=== PATIENT | male | born 1955 | race Caucasian/White ===

== ENCOUNTER 2019-07-06 09:47 | Day surgery (SDC) | payer MEDICARE ==
[~2019-07-06 09:47] MED LIST: Dexamethasone 4 MG/ML 5 ML MDV ONE; Ropivacaine 0.5% 5 MG/ML 30 ML SDV ONE
[2019-07-06] MEDS ORDERED: Lactated Ringers 1,000 ML IV SCH (11:00)
--- NOTE | 2019-07-06 11:20 | PCM.PREANE ---
Preanesthetic Assessment - Anesthesia/Transfusion/Family Hx Anesthesia History: No Prior Anesthesia Family History of Anesthesia Reaction: No Transfusion History: Unknown Intubation History: Unknown - Review of Systems General: No Symptoms Pulmonary: No Symptoms Cardiovascular: No Symptoms Gastrointestinal: No Symptoms Neurological: No Symptoms Other: Reports: None - Physical Assessment NPO Status Date: 07/06/19 NPO Status Time: 08:00 Vital Signs: Last Vital Signs Temp 36.5 C 07/06/19 10:00 Pulse Resp 18 07/06/19 10:00 BP 171/92 H 07/06/19 10:00 Pulse Ox 99 07/06/19 10:00 Height: 5 ft 9 in Weight: 102.058 kg ASA Class: 2 Mental Status: Alert & Oriented x3 Airway Class: Mallampati = 1 Dentition: Reports: Dentures (upper), Edentulous (lower) Thyro-Mental Finger Breadths: 3 Mouth Opening Finger Breadths: 3 ROM/Head Extension: Full Lungs: Clear to Auscultation, Normal Respiratory Effort Cardiovascular: Regular Rate, Regular Rhythm - Allergies Allergies/Adverse Reactions: Allergies Allergy/AdvReac Type Severity Reaction Status Date / Time naproxen [From Naprosyn] Allergy Rash Verified 07/03/19 13:30 - Blood Blood Available: No - Anesthesia Plan Pre-Op Medication Ordered: None - Acknowledgements Anesthesia Type Planned: General Anesthesia (interscalene brachial plexus block for postoperative pain control) Pt an Appropriate Candidate for the Planned Anesthesia: Yes Alternatives and Risks of Anesthesia Discussed w Pt/Guardian: Yes Pt/Guardian Understands and Agrees with Anesthesia Plan: Yes PreAnesthesia Questionnaire HEENT History: Reports: Other (See Below) Other HEENT History: wears glasses, top and bottom denture, hearing aids but does not wear them Cardiovascular History: Reports: None Respiratory History: Reports: None Gastrointestinal History: Reports: None Genitourinary History: Reports: None Musculoskeletal History: Reports: Other (See Below) Other Musculoskeletal History: dislocated rt hip in the past Neurological History: Reports: None Psychiatric History: Reports: None Endocrine/Metabolic History: Reports: Obesity/BMI 30+ Hematologic History: Reports: None Immunologic History: Reports: None Oncologic (Cancer) History: Reports: None Dermatologic History: Reports: None - Past Surgical History Head Surgeries/Procedures: Reports: None HEENT Surgical History: Reports: None Cardiovascular Surgical History: Reports: None Respiratory Surgical History: Reports: None GI Surgical History: Reports: None Male Surgical History: Reports: None Endocrine Surgical History: Reports: None Neurological Surgical History: Reports: None Musculoskeletal Surgical History: Reports: None Oncologic Surgical History: Reports: None Dermatological Surgical History: Reports: None - SUBSTANCE USE Smoking Status *Q: Former Smoker (quit 14 years ago) Tobacco Use Within Last Twelve Months: No Recreational Drug Use History: No - HOME MEDS Home Medications: Home Meds Aspirin [Adult Low Dose Aspirin EC] 81 mg PO DAILY 07/03/19 [History] Rutin/Hesp/Bioflav/C/[id number] [Bioflex] 1 tab PO DAILY 07/03/19 [History] - CURRENT (IN HOUSE) MEDS Current Meds: Current Medications Lactated Ringer's (Ringers, Lactated) 1,000 mls @ 100 mls/hr IV ASDIRECTED STEPHANY Discontinued Medications Dexamethasone (Dexamethasone) Confirm Administered Dose 20 mg .ROUTE .STK-MED ONE Stop: 07/06/19 07:51 Ropivacaine (Naropin 0.5%) Confirm Administered Dose 30 ml .ROUTE .STK-MED ONE Stop: 07/06/19 07:36
--- NOTE | 2019-07-06 11:44 | PCM.OPNOTE ---
- General Post-Op/Procedure Note Date of Surgery/Procedure: 07/06/19 Operative Procedure(s): right shoulder arthroscopy, subacromial decompression, open rotator cuff repair Pre Op Diagnosis: right shoulder impingement and rotator cuff tear Post-Op Diagnosis: Same Anesthesia Technique: General ET Tube Primary Surgeon: Elmer Estevez Anesthesia Provider: Weston Zuleta EBL in mLs: 50 Complications: None Condition: Good
[2019-07-06] MEDS ORDERED: Lidocaine 2% 5 ML SDV ONE (11:54)
[2019-07-06] MEDS ORDERED: Ketorolac 30 MG/ML SDV ONE (11:54)
[2019-07-06] MEDS ORDERED: Ondansetron 4 MG/2 ML SDV ONE (11:54)
[2019-07-06] MEDS ORDERED: Rocuronium 100 MG/10 ML Syringe ONE (11:54)
[2019-07-06] MEDS ORDERED: Glycopyrrolate 0.2 MG/ML SDV ONE (11:54)
[2019-07-06] MEDS ORDERED: Sugammadex Sodium 200 MG/2 ML VIAL ONE (11:55)
[2019-07-06] MEDS ORDERED: Midazolam 1 MG/ML 2 ML SDV ONE ×2 (11:57→11:58)
[2019-07-06] MEDS ORDERED: fentaNYL 100 MCG/2 ML SDV ONE ×2 (11:58→14:13)
[2019-07-06] MEDS ORDERED: Propofol 200 MG/20 ML SDV ONE (12:10)
[2019-07-06] MEDS ORDERED: ceFAZolin 1 GM Vial ONE (12:11)
[2019-07-06] MEDS ORDERED: Phenylephrine/Normal Saline 100 MCG/ML 10 ML Syringe ONE (14:00)
[2019-07-06] MEDS ORDERED: fentaNYL 250 MCG/5 ML SDV ONE (14:12)
--- NOTE | 2019-07-06 14:12 | PCM.PRNOTE ---
- Free Text/Narrative Note: Anes Note Right interscalene block for post op pain managmement per request of surgeon. Under sterile technique, the right side of the neck was prepped with chloraprep scrub. THe landmarks and nerves of the R IS bundle was identified. Using a stimuplex 22 X 2 needle, the nerves were approached using the nerve stimulator set at 1.2 mA. An excellent bicep twitch was noted. The needle was cautiously advnaced until the twitch was lost at 0.6 mA. At this time, the needle was carefully aspirated for blood; Negative. A totla of 25 cc 0.5% ropiviciane with 6 mg decadron added in slow incremental doses. The patient reported significan improvement in pain in the right shoulder. Weston Gallego BEVELLER OPERATOR
[2019-07-06] MEDS ORDERED: Labetalol 100 MG/20 ML MDV ONE (14:14)
[2019-07-06] MEDS: fentaNYL 100 MCG/2 ML SDV IVPUSH PRN ×2 (15:56→16:46)
--- NOTE | 2019-07-06 16:10 | PCM.POSTAN ---
POST ANESTHESIA ASSESSMENT - MENTAL STATUS Mental Status: Alert, Oriented - VITAL SIGNS Vital Signs: Last Vital Signs Temp 35.9 C 07/06/19 15:43 Pulse 89 07/06/19 16:05 Resp 9 L 07/06/19 16:05 BP 133/82 07/06/19 16:05 Pulse Ox 93 L 07/06/19 16:05 - RESPIRATORY Respiratory Status: Respiratory Rate WNL, Airway Patent, O2 Saturation Stable - CARDIOVASCULAR CV Status: Pulse Rate WNL, Blood Pressure Stable - GASTROINTESTINAL GI Status: No Symptoms - PAIN Pain Score: 0 - POST OP HYDRATION Hydration Status: Adequate & Stable
[2019-07-06] MEDS ORDERED: Acetaminophen/oxyCODONE 325-5 MG Tab PO PRN (17:00)
--- NOTE | 2019-07-06 17:19 | OR ---
SURGEON: Elmer Estevez DATE OF PROCEDURE: 07/06/2019 PREOPERATIVE DIAGNOSES: Right rotator cuff tear and right shoulder impingement. POSTOPERATIVE DIAGNOSES: Right rotator cuff tear and right shoulder impingement. PROCEDURES: 1. Right shoulder arthroscopy with partial synovectomy and bursectomy. 2. Open rotator cuff repair. PRIMARY SURGEON: Elmer Estevez DO. ANESTHESIA: Weston Curiel CRNA. FLUID: Lactated Ringer's solution. ESTIMATED BLOOD LOSS: 25 mL. COMPLICATIONS: None. SPECIMENS: None. DISCHARGE DISPOSITION: Stable to PACU. HISTORY AND INDICATIONS FOR THE PROCEDURE: The patient was seen preoperatively in the clinic. He had already had problems from an injury previous to this. He had an MRI which showed a large rotator cuff tear of at least the supraspinatus. Risks and goals of the procedure were explained to the patient. Informed consent was obtained. DETAILS OF PROCEDURE: The patient was seen preoperatively by myself and the Anesthesia staff in the preop holding area where the operative site was marked. He was brought to the operative suite by Anesthesia staff where a right interscalene block was performed followed by general endotracheal intubation. He was positioned in a beach chair. The right upper extremity was then prepped and draped in a sterile manner. Time-out was called identifying the correct patient, the correct procedure, the correct site and that antibiotics had been given within appropriate period of time. A posterior portal was made and the joint was explored. Biceps tendon was not intact. There was a large frame around the glenoid. 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 I went through the anterior portal and then performed a partial synovectomy and removed part of the glenoid labrum in the base of the biceps tendon and then used my ablation unit to clean up the edges. I then removed my scope and went into the subacromial space and then performed a partial bursectomy of the subacromial space. I then was able to visualize. The clavicle was identified easily. I did not see an acromion present or a hook at least indicating that there had been a previous acromial resection. I then removed my instruments and then re-prepped and then made a saber incision lateral to the acromion, approximately 5 cm. I carried this down to the deltoid fascia. I was able to identify the raphe between the anterior and medial deltoid and then went through this with Metzenbaum's. There was significant bursa in the area, then I performed a bursectomy using a 10 and 15 blade. There was a much larger rotator cuff tear than described on the imaging. I did this in two parts. I did the posterior portion of the cuff with two Corkscrew Arthrex anchors followed by two SwiveLock and then externally rotated the arm and did the anterior supraspinatus footprint with two Corkscrew and one SwiveLock in a two-row manner. After this had been performed and I felt that we had adequate fixation of the rotator cuff, we then irrigated copiously with Betadine infused irrigation. Closed the deltoid interval with 0 Stratafix in a watertight running manner; followed by subcutaneous closure with 0 Stratafix; followed by skin lucy; followed by Betadine-soaked Adaptic dressing, fluffs, and Medipore tape. The patient was allowed to awaken from general anesthesia and taken to the PACU in a sling. [id number] / MODL /[id number]
--- NOTE | 2019-07-06 18:10 | PCM48HPAN ---
Post Anesthesia Note - EVALUATION WITHIN 48HRS OF ANESTHETIC Vital Signs in Normal Range: Yes Patient Participated in Evaluation: Yes Respiratory Function Stable: Yes Airway Patent: Yes Cardiovascular Function Stable: Yes Hydration Status Stable: Yes Pain Control Satisfactory: Yes Nausea and Vomiting Control Satisfactory: Yes Mental Status Recovered: Yes Vital Signs: Last Vital Signs Temp 36.0 C 07/06/19 16:17 Pulse 89 07/06/19 16:17 Resp 16 07/06/19 16:17 BP 157/72 H 07/06/19 16:17 Pulse Ox 93 L 07/06/19 16:17
== END 2019-07-06 17:25 | disposition home or self-care (01) ==
LOC: MW.SDS 09:47
PROVIDERS: ATTEND Orthopaedic Surgery
DX: M75.101 Unspecified rotator cuff tear or rupture of right shoulder, not specified as traumatic (principal); M25.811 Other specified joint disorders, right shoulder; M19.019 Primary osteoarthritis, unspecified shoulder; Z88.6 Allergy status to analgesic agent; Z79.82 Long term (current) use of aspirin; Z87.891 Personal history of nicotine dependence
CPT/HCPCS: 23412; A9270; C1713; J0690; J1100; J1885; J2001; J2250; J2370; J2405; J2704; J2795; J3010; J3490; J7120

== ENCOUNTER 2020-02-06 10:35 | Observation (INO) | payer MEDICARE, OTHER ==
[2020-02-06] MEDS ORDERED: Aspirin 81 MG Tab.Chew PO ONE (10:43)
[2020-02-06] MEDS ORDERED: Sodium Chloride 0.9% 10 ML Syringe FLUSH PRN (10:43)
[2020-02-06] MEDS ORDERED: Sodium Chloride 0.9% 2.5 ML Syringe FLUSH PRN (10:43)
--- NOTE | 2020-02-06 10:47 | EDM.PDOC ---
ED HPI GENERAL MEDICAL PROBLEM - General Chief Complaint: Chest Pain Stated Complaint: CHEST PAIN Time Seen by Provider: 02/06/20 10:43 Source of Information: Reports: Patient - History of Present Illness INITIAL COMMENTS - FREE TEXT/NARRATIVE: History of present illness: 64-year-old male presenting with left-sided left lower chest/left upper abdomen pain which has been ongoing for 1 month. Patient does not have a primary care physician. Pain does not radiate anywhere. The patient describes it as a pressure point sensation. Reports pretty consistent throughout the day without waxing or waning or resolution. Reports he finally got tired of it and thought he would get it checked out. Took an 81 mg aspirin this morning. Review of systems: As per history of present illness and below otherwise all systems reviewed and negative. Past medical history: As per history of present illness and as reviewed below otherwise noncontributory. Surgical history: As per history of present illness and as reviewed below otherwise noncontributory. Social history: No reported history of drug or alcohol abuse. No smoking. Family history: As per history of present illness and as reviewed below otherwise noncontributory. Physical exam: GEN: no acute distress, well appearing HEENT: Atraumatic, normocephalic, mucous membranes moist, Neck: supple, nontender, trachea midline. Lungs: No respiratory distress. Heart: slightly irregular rhythm, consistent with monitor showing afib and EKG Abdomen: Soft, nondistended, nontender. Back: nontender Extremities: Atraumatic. Neurovascularly intact. Neuro: Awake, alert, oriented. Neuro Exam nonfocal. Skin: warm, dry, no lesions Diagnostics: [] Therapeutics: [] MDM: Impression: [] Plan: [] Definitive disposition and diagnosis as appropriate pending reevaluation and review of above. Left sternal Pain Score (Numeric/FACES): 3 - Related Data Allergies Allergy/AdvReac Type Severity Reaction Status Date / Time naproxen [From Naprosyn] Allergy Rash Verified 02/06/20 16:03 Home Meds: Home Meds Aspirin [Adult Low Dose Aspirin EC] 81 mg PO DAILY 07/03/19 [History] Past Medical History HEENT History: Reports: Other (See Below) Other HEENT History: wears glasses, top and bottom denture, hearing aids but does not wear them Cardiovascular History: Reports: None Respiratory History: Reports: None Gastrointestinal History: Reports: None Genitourinary History: Reports: None Musculoskeletal History: Reports: Other (See Below) Other Musculoskeletal History: dislocated rt hip in the past Neurological History: Reports: None Psychiatric History: Reports: None Endocrine/Metabolic History: Reports: Obesity/BMI 30+ Hematologic History: Reports: None Immunologic History: Reports: None Oncologic (Cancer) History: Reports: None Dermatologic History: Reports: None - Past Surgical History Head Surgeries/Procedures: Reports: None HEENT Surgical History: Reports: None Cardiovascular Surgical History: Reports: None Respiratory Surgical History: Reports: None GI Surgical History: Reports: None Male Surgical History: Reports: None Endocrine Surgical History: Reports: None Neurological Surgical History: Reports: None Musculoskeletal Surgical History: Reports: None Oncologic Surgical History: Reports: None Dermatological Surgical History: Reports: None ED ROS GENERAL - Review of Systems Review Of Systems: See Below (See HPI) ED EXAM, GENERAL - Physical Exam Exam: See Below (See HPI) EKG INTERPRETATION EKG Interpretation Comments: EKG performed at 10:37 AM appears to be in atrial fibrillation at a rate of 98 with T inversion in lead III and Q wave in lead III. No STEMI. No known history of atrial fibrillation Repeat EKG performed at 1:48 PM, atrial fibrillation, rate 85, right bundle branch block and left posterior fascicular block, no acute ischemia T wave inversion in lead III. Appears clinically unchanged from EKG performed earlier today. Course - Vital Signs Text/Narrative:: Patient with chest discomfort ongoing for 1 month. Initial and repeat troponin negative. EKG nonischemic but does appear to be atrial fibrillation. No prior history of atrial fibrillation and low/moderate risk for coronary artery disease. Patient does not have a primary care physician. Heart score 3. Last Recorded V/S: Last Vital Signs Temp 99.1 F 02/06/20 19:38 Pulse 90 02/06/20 19:38 Resp 16 02/06/20 19:38 BP 141/95 H 02/06/20 19:38 Pulse Ox 96 02/06/20 19:38 - Orders/Labs/Meds Orders: Active Orders 24 hr Category Date Time Status Sodium Chloride 0.9% [Saline Flush] Med 02/06/20 10:43 Active 10 ml FLUSH ASDIRECTED PRN Sodium Chloride 0.9% [Saline Flush] Med 02/06/20 10:43 Active 2.5 ml FLUSH ASDIRECTED PRN Saline Lock Insert [OM.PC] Stat Oth 02/06/20 10:43 Ordered Medication Orders Acetaminophen (Tylenol) 650 mg PO Q4H PRN PRN Reason: Pain (Mild 1-3)/fever Aspirin (Aspirin) 325 mg PO DAILY STEPHANY Metoprolol Tartrate (Lopressor) 25 mg PO Q12H STEPHANY Last Admin: 02/06/20 16:44 Dose: 25 mg Documented by: TRAE Metoprolol Tartrate (Lopressor) 5 mg IVPUSH Q4H PRN PRN Reason: HR >120 sustained Ondansetron HCl (Zofran) 4 mg IVPUSH Q4H PRN PRN Reason: Nausea Sodium Chloride (Saline Flush) 10 ml FLUSH ASDIRECTED PRN PRN Reason: Keep Vein Open Last Admin: 02/06/20 11:48 Dose: 10 ml Documented by: [id number] Sodium Chloride (Saline Flush) 2.5 ml FLUSH ASDIRECTED PRN PRN Reason: Keep Vein Open Last Admin: 02/06/20 11:48 Dose: 2.5 ml Documented by: [id number] Labs: Laboratory Tests 02/06/20 02/06/20 02/06/20 Range/Units 10:38 10:38 10:38 WBC 6.62 (4.0-11.0) K/uL RBC 5.07 (4.50-5.90) M/uL Hgb 15.8 (13.0-17.0) g/dL Hct 46.8 (38.0-50.0) % MCV 92.3 (80.0-98.0) fL MCH 31.2 (27.0-32.0) pg MCHC 33.8 (31.0-37.0) g/dL RDW Std Deviation 45.2 (28.0-62.0) fl RDW Coeff of Richie 13 (11.0-15.0) % Plt Count 133 L (150-400) K/uL MPV 11.10 (7.40-12.00) fL Neut % (Auto) 58.6 (48.0-80.0) % Lymph % (Auto) 25.2 (16.0-40.0) % [place] % (Auto) 11.2 (0.0-15.0) % Eos % (Auto) 4.7 (0.0-7.0) % Baso % (Auto) 0.3 (0.0-1.5) % Neut # (Auto) 3.9 (1.4-5.7) K/uL Lymph # (Auto) 1.7 (0.6-2.4) K/uL [place] # (Auto) 0.7 (0.0-0.8) K/uL Eos # (Auto) 0.3 (0.0-0.7) K/uL Baso # (Auto) 0.0 (0.0-0.1) K/uL Nucleated RBC % 0.0 /100WBC Nucleated RBCs # 0 K/uL INR 1.12 Sodium 140 (136-148) mmol/L Potassium 4.5 (3.5-5.1) mmol/L Chloride 106 (98-107) mmol/L Carbon Dioxide 24.2 (21.0-32.0) mmol/L BUN 14 (7.0-18.0) mg/dL Creatinine 1.1 (0.8-1.3) mg/dL Est Cr Clr Drug Dosing 66.06 mL/min Estimated GFR (MDRD) > 60.0 ml/min Glucose 109 H (74-106) mg/dL Hemoglobin A1c (4.5-6.2) % Calcium 9.2 (8.5-10.1) mg/dL Total Bilirubin 0.9 (0.2-1.0) mg/dL AST 27 (15-37) IU/L ALT 27 (14-63) IU/L Alkaline Phosphatase 66 (46-116) U/L Troponin I < 0.050 (0.000-0.056) ng/mL Total Protein 7.8 (6.4-8.2) g/dL Albumin 3.8 (3.4-5.0) g/dL Globulin 4.0 (2.6-4.0) g/dL Albumin/Globulin Ratio 0.9 (0.9-1.6) Triglycerides (0-200) mg/dL Cholesterol (50-200) mg/dL LDL Cholesterol, Calc (60-180) mg/dL VLDL Cholesterol (5-55) mg/dL HDL Cholesterol (40-60) mg/dL Cholesterol/HDL Ratio (3.3-6.0) Lipase 80 (73-393) U/L TSH 3rd Generation 2.84 (0.36-3.74) uIU/mL 02/06/20 02/06/20 02/06/20 Range/Units 10:38 10:38 12:46 WBC (4.0-11.0) K/uL RBC (4.50-5.90) M/uL Hgb (13.0-17.0) g/dL Hct (38.0-50.0) % MCV (80.0-98.0) fL MCH (27.0-32.0) pg MCHC (31.0-37.0) g/dL RDW Std Deviation (28.0-62.0) fl RDW Coeff of Richie (11.0-15.0) % Plt Count (150-400) K/uL MPV (7.40-12.00) fL Neut % (Auto) (48.0-80.0) % Lymph % (Auto) (16.0-40.0) % [place] % (Auto) (0.0-15.0) % Eos % (Auto) (0.0-7.0) % Baso % (Auto) (0.0-1.5) % Neut # (Auto) (1.4-5.7) K/uL Lymph # (Auto) (0.6-2.4) K/uL [place] # (Auto) (0.0-0.8) K/uL Eos # (Auto) (0.0-0.7) K/uL Baso # (Auto) (0.0-0.1) K/uL Nucleated RBC % /100WBC Nucleated RBCs # K/uL INR Sodium (136-148) mmol/L Potassium (3.5-5.1) mmol/L Chloride (98-107) mmol/L Carbon Dioxide (21.0-32.0) mmol/L BUN (7.0-18.0) mg/dL Creatinine (0.8-1.3) mg/dL Est Cr Clr Drug Dosing mL/min Estimated GFR (MDRD) ml/min Glucose (74-106) mg/dL Hemoglobin A1c 5.9 (4.5-6.2) % Calcium (8.5-10.1) mg/dL Total Bilirubin (0.2-1.0) mg/dL AST (15-37) IU/L ALT (14-63) IU/L Alkaline Phosphatase (46-116) U/L Troponin I < 0.050 (0.000-0.056) ng/mL Total Protein (6.4-8.2) g/dL Albumin (3.4-5.0) g/dL Globulin (2.6-4.0) g/dL Albumin/Globulin Ratio (0.9-1.6) Triglycerides 65 (0-200) mg/dL Cholesterol 189 (50-200) mg/dL LDL Cholesterol, Calc 134 (60-180) mg/dL VLDL Cholesterol 13 (5-55) mg/dL HDL Cholesterol 42 (40-60) mg/dL Cholesterol/HDL Ratio 4.5 (3.3-6.0) Lipase (73-393) U/L TSH 3rd Generation (0.36-3.74) uIU/mL Meds: Medications Generic Name Dose Route Start Last Admin Trade Name Freq PRN Reason Stop Dose Admin Acetaminophen 650 mg 02/06/20 14:37 Tylenol PO Q4H PRN Pain (Mild 1-3)/fever Aspirin 325 mg 02/07/20 09:00 Aspirin PO DAILY STEPHANY Metoprolol Tartrate 25 mg 02/06/20 16:45 02/06/20 16:44 Lopressor PO 25 mg Q12H STEPHANY Administration Metoprolol Tartrate 5 mg 02/06/20 16:32 Lopressor IVPUSH Q4H PRN HR >120 sustained Ondansetron HCl 4 mg 02/06/20 14:37 Zofran IVPUSH Q4H PRN Nausea Sodium Chloride 10 ml 02/06/20 10:43 02/06/20 11:48 Saline Flush FLUSH 10 ml ASDIRECTED PRN Administration Keep Vein Open Sodium Chloride 2.5 ml 02/06/20 10:43 02/06/20 11:48 Saline Flush FLUSH 2.5 ml ASDIRECTED PRN Administration Keep Vein Open Discontinued Medications Generic Name Dose Route Start Last Admin Trade Name Freq PRN Reason Stop Dose Admin Aspirin 324 mg 02/06/20 10:43 02/06/20 11:47 Aspirin PO 02/06/20 10:44 324 mg ONETIME ONE Administration Enoxaparin Sodium 100 mg 02/06/20 13:55 02/06/20 14:21 Lovenox SUBCUT 02/06/20 13:56 100 mg ONETIME ONE Administration - Re-Assessments/Exams Free Text/Narrative Re-Assessment/Exam: 02/06/20 13:12 Results discussed with patient. Recommendation for admission discussed. Patient agrees with this plan. He is pain-free at this time. 02/06/20 13:[address] Gary, who called back to admit the patient. He agrees with this plan and accepts admission. Request to place the patient under observation, telemetry. Departure - Departure Time of Disposition: 13:50 Disposition: Refer to Observation Clinical Impression: Atrial fibrillation, Chest pain Sepsis Event Note (ED) - Focused Exam Vital Signs: Vital Signs Temp Pulse Resp BP Pulse Ox 02/06/20 13:30 92 17 131/80 96 02/06/20 12:45 92 17 145/82 H 98 02/06/20 12:15 89 17 134/82 98 02/06/20 11:45 89 17 128/88 96 02/06/20 11:15 92 16 128/80 97 02/06/20 10:42 97.8 F 101 H 16 113/85 98 - My Orders Last 24 Hours: My Active Orders 02/06/20 10:43 Sodium Chloride 0.9% [Saline Flush] 10 ml FLUSH ASDIRECTED PRN Sodium Chloride 0.9% [Saline Flush] 2.5 ml FLUSH ASDIRECTED PRN Saline Lock Insert [OM.PC] Stat - Assessment/Plan Last 24 Hours: My Active Orders 02/06/20 10:43 Sodium Chloride 0.9% [Saline Flush] 10 ml FLUSH ASDIRECTED PRN Sodium Chloride 0.9% [Saline Flush] 2.5 ml FLUSH ASDIRECTED PRN Saline Lock Insert [OM.PC] Stat
--- NOTE | 2020-02-06 11:15 | CR ---
Chest: 2 views of the chest were obtained. Comparison: No previous chest imaging is available. Small nodule is noted within the right upper lung laterally along the chest wall. This either represents a bone island within the rib or a granuloma. Lungs otherwise are clear with no acute parenchymal change. Heart size and mediastinum are normal. Bony structures shows mild scattered disc space narrowing and endplate spurring. Impression: 1. Nonacute findings as noted above. Diagnostic code #2 This report was dictated in MDT
[2020-02-06 11:21] LABS: BLOOD UREA NITROGEN,BUN 14 mg/dL (7.0-18.0); CARBON DIOXIDE,CO2 24.2 mmol/L (21.0-32.0); CHLORIDE,CL 106 mmol/L (98-107); GLUCOSE RANDOM 109 mg/dL (74-106); LIPASE 80 U/L (73-393); POTASSIUM,K 4.5 mmol/L (3.5-5.1); SODIUM,NA 140 mmol/L (136-148)
[2020-02-06] MEDS ORDERED: Enoxaparin 100 MG/1 ML Syringe SUBCUT ONE (13:55)
[2020-02-06] MEDS ORDERED: Ondansetron 4 MG/2 ML SDV IVPUSH PRN (14:37)
[2020-02-06] MEDS ORDERED: Acetaminophen 325 MG Tab PO PRN (14:37)
[2020-02-06 15:06] LABS: HEMOGLOBIN A1C 5.9 % (4.5-6.2)
--- NOTE | 2020-02-06 15:56 | PCM.HP.2 ---
H&P History of Present Illness - General Date of Service: 02/06/20 Admit Problem/Dx: Admission Diagnosis/Problem Admission Diagnosis/Problem Atrial fibrillation Source of Information: Patient History Limitations: Reports: No Limitations - History of Present Illness Initial Comments - Free Text/Narative: This 64 year old male with no significant pmh presented to the ED today with complaints of chest pain x 1 month. He reports this pain happens in themorning and as he gets moving he doesn't notice it anymore. It has been happening more often and he wanted to be evaluated and does not have a PCP. He has been monitoring BP at home, HR has been 90-110 and BP 130-140/80-90. He has never been on medication for HTN. He reports he takes only ASA now. He denies radiation of pain, no other associated symptoms. He denies lightheadedness, dizziness, or syncope. He denies palpitations. 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 No fevers, chills, cough, sore throat. He denies abdominal pain or urinary concerns. No neurological deficits. He used to smoke, but quit many years ago, no alcohol use and no recreational drug use. In the ED, no leukocytosis noted. BUN cr normal. Glucose 109, A1c 5.9. TSH 2.84. EKG revealed atrial fibrillation. Telemetery revealed HR elevated to 150s, all symptomatic. CXR negative. Troponin negative. Admitted for chest pain and new onset atrial fibrillaton. Requests PCP follow up with Dr Donahue. Left sternal Pain Score (Numeric/FACES): 3 - Related Data Allergies/Adverse Reactions: Allergies Allergy/AdvReac Type Severity Reaction Status Date / Time naproxen [From Naprosyn] Allergy Rash Verified 02/06/20 16:03 Home Medications: Home Meds Aspirin [Adult Low Dose Aspirin EC] 81 mg PO DAILY 07/03/19 [History] Past Medical History HEENT History: Reports: Other (See Below) Other HEENT History: wears glasses, top and bottom denture, hearing aids but does not wear them Cardiovascular History: Reports: None. Denies: Afib, Blood Clots/VTE/DVT, CAD, High Cholesterol Respiratory History: Reports: None. Denies: Asthma, COPD, PE Gastrointestinal History: Reports: None. Denies: GERD Genitourinary History: Reports: None Musculoskeletal History: Reports: Other (See Below) Other Musculoskeletal History: dislocated rt hip in the past Neurological History: Reports: None Psychiatric History: Reports: None Endocrine/Metabolic History: Reports: Obesity/BMI 30+ Hematologic History: Reports: None Immunologic History: Reports: None Oncologic (Cancer) History: Reports: None Dermatologic History: Reports: None - Infectious Disease History Infectious Disease History: Reports: None - Past Surgical History Head Surgeries/Procedures: Reports: None HEENT Surgical History: Reports: None Cardiovascular Surgical History: Reports: None Respiratory Surgical History: Reports: None GI Surgical History: Reports: None Male Surgical History: Reports: None Endocrine Surgical History: Reports: None Neurological Surgical History: Reports: None Musculoskeletal Surgical History: Reports: Shoulder Surgery Oncologic Surgical History: Reports: None Dermatological Surgical History: Reports: None Social & Family History - Family History Family Medical History: Noncontributory - Tobacco Use Smoking Status *Q: Never Smoker - Caffeine Use Caffeine Use: Reports: Coffee - Alcohol Use Alcohol Use History: No - Recreational Drug Use Recreational Drug Use: No - Living Situation & Occupation Occupation: Employed (own construction business) H&P Review of Systems - Review of Systems: Review Of Systems: See Below General: Reports: No Symptoms. Denies: Fever, Chills, Malaise Pulmonary: Denies: Shortness of Breath Cardiovascular: Reports: Chest Pain. Denies: Orthopnea, Edema, Lightheadedness, Syncope Gastrointestinal: Reports: No Symptoms. Denies: Black Stool, Bloody Stool, Decreased Appetite, Nausea, Vomiting Genitourinary: Reports: No Symptoms. Denies: Dysuria, Frequency Musculoskeletal: Reports: No Symptoms Skin: Reports: No Symptoms. Denies: Erythema, Wound Psychiatric: Reports: No Symptoms Neurological: Reports: No Symptoms Hematologic/Lymphatic: Reports: No Symptoms Immunologic: Reports: No Symptoms Exam - Exam Exam: See Below - Vital Signs Vital Signs: Last Vital Signs Temp 97.8 F 02/06/20 10:42 Pulse 89 02/06/20 14:26 Resp 17 02/06/20 14:26 BP 125/88 02/06/20 14:26 Pulse Ox 98 02/06/20 14:26 Weight: 97.522 kg - Exam General: Alert, Oriented, Cooperative Neck: Supple, Trachea Midline Lungs: Clear to Auscultation, Normal Respiratory Effort Cardiovascular: Irregular Rhythm, Tachycardia GI/Abdominal Exam: Normal Bowel Sounds, Soft, Non-Tender Back Exam: Normal Inspection, Full Range of Motion Extremities: Normal Inspection, Normal Range of Motion, Non-Tender, No Pedal Edema Neuro Extensive - Mental Status: Alert, Oriented x3 Neuro Extensive - Motor, Sensory, Reflexes: CN II-XII Intact Psychiatric: Alert, Normal Affect, Normal Mood - Patient Data Lab Results Last 24 hrs: Laboratory Results - last 24 hr 02/06/20 02/06/20 02/06/20 Range/Units 10:38 10:38 10:38 WBC 6.62 (4.0-11.0) K/uL RBC 5.07 (4.50-5.90) M/uL Hgb 15.8 (13.0-17.0) g/dL Hct 46.8 (38.0-50.0) % MCV 92.3 (80.0-98.0) fL MCH 31.2 (27.0-32.0) pg MCHC 33.8 (31.0-37.0) g/dL RDW Std Deviation 45.2 (28.0-62.0) fl RDW Coeff of Richie 13 (11.0-15.0) % Plt Count 133 L (150-400) K/uL MPV 11.10 (7.40-12.00) fL Neut % (Auto) 58.6 (48.0-80.0) % Lymph % (Auto) 25.2 (16.0-40.0) % [place] % (Auto) 11.2 (0.0-15.0) % Eos % (Auto) 4.7 (0.0-7.0) % Baso % (Auto) 0.3 (0.0-1.5) % Neut # (Auto) 3.9 (1.4-5.7) K/uL Lymph # (Auto) 1.7 (0.6-2.4) K/uL [place] # (Auto) 0.7 (0.0-0.8) K/uL Eos # (Auto) 0.3 (0.0-0.7) K/uL Baso # (Auto) 0.0 (0.0-0.1) K/uL Nucleated RBC % 0.0 /100WBC Nucleated RBCs # 0 K/uL INR 1.12 Sodium 140 (136-148) mmol/L Potassium 4.5 (3.5-5.1) mmol/L Chloride 106 (98-107) mmol/L Carbon Dioxide 24.2 (21.0-32.0) mmol/L BUN 14 (7.0-18.0) mg/dL Creatinine 1.1 (0.8-1.3) mg/dL Est Cr Clr Drug Dosing 66.06 mL/min Estimated GFR (MDRD) > 60.0 ml/min Glucose 109 H (74-106) mg/dL Hemoglobin A1c (4.5-6.2) % Calcium 9.2 (8.5-10.1) mg/dL Total Bilirubin 0.9 (0.2-1.0) mg/dL AST 27 (15-37) IU/L ALT 27 (14-63) IU/L Alkaline Phosphatase 66 (46-116) U/L Troponin I < 0.050 (0.000-0.056) ng/mL Total Protein 7.8 (6.4-8.2) g/dL Albumin 3.8 (3.4-5.0) g/dL Globulin 4.0 (2.6-4.0) g/dL Albumin/Globulin Ratio 0.9 (0.9-1.6) Triglycerides (0-200) mg/dL Cholesterol (50-200) mg/dL LDL Cholesterol, Calc (60-180) mg/dL VLDL Cholesterol (5-55) mg/dL HDL Cholesterol (40-60) mg/dL Cholesterol/HDL Ratio (3.3-6.0) Lipase 80 (73-393) U/L TSH 3rd Generation 2.84 (0.36-3.74) uIU/mL SARS Virus RNA (PCR) (NEGATIVE) 02/06/20 02/06/20 02/06/20 Range/Units 10:38 10:38 12:46 WBC (4.0-11.0) K/uL RBC (4.50-5.90) M/uL Hgb (13.0-17.0) g/dL Hct (38.0-50.0) % MCV (80.0-98.0) fL MCH (27.0-32.0) pg MCHC (31.0-37.0) g/dL RDW Std Deviation (28.0-62.0) fl RDW Coeff of Richie (11.0-15.0) % Plt Count (150-400) K/uL MPV (7.40-12.00) fL Neut % (Auto) (48.0-80.0) % Lymph % (Auto) (16.0-40.0) % [place] % (Auto) (0.0-15.0) % Eos % (Auto) (0.0-7.0) % Baso % (Auto) (0.0-1.5) % Neut # (Auto) (1.4-5.7) K/uL Lymph # (Auto) (0.6-2.4) K/uL [place] # (Auto) (0.0-0.8) K/uL Eos # (Auto) (0.0-0.7) K/uL Baso # (Auto) (0.0-0.1) K/uL Nucleated RBC % /100WBC Nucleated RBCs # K/uL INR Sodium (136-148) mmol/L Potassium (3.5-5.1) mmol/L Chloride (98-107) mmol/L Carbon Dioxide (21.0-32.0) mmol/L BUN (7.0-18.0) mg/dL Creatinine (0.8-1.3) mg/dL Est Cr Clr Drug Dosing mL/min Estimated GFR (MDRD) ml/min Glucose (74-106) mg/dL Hemoglobin A1c 5.9 (4.5-6.2) % Calcium (8.5-10.1) mg/dL Total Bilirubin (0.2-1.0) mg/dL AST (15-37) IU/L ALT (14-63) IU/L Alkaline Phosphatase (46-116) U/L Troponin I < 0.050 (0.000-0.056) ng/mL Total Protein (6.4-8.2) g/dL Albumin (3.4-5.0) g/dL Globulin (2.6-4.0) g/dL Albumin/Globulin Ratio (0.9-1.6) Triglycerides 65 (0-200) mg/dL Cholesterol 189 (50-200) mg/dL LDL Cholesterol, Calc 134 (60-180) mg/dL VLDL Cholesterol 13 (5-55) mg/dL HDL Cholesterol 42 (40-60) mg/dL Cholesterol/HDL Ratio 4.5 (3.3-6.0) Lipase (73-393) U/L TSH 3rd Generation (0.36-3.74) uIU/mL SARS Virus RNA (PCR) (NEGATIVE) 02/06/20 Range/Units 14:20 WBC (4.0-11.0) K/uL RBC (4.50-5.90) M/uL Hgb (13.0-17.0) g/dL Hct (38.0-50.0) % MCV (80.0-98.0) fL MCH (27.0-32.0) pg MCHC (31.0-37.0) g/dL RDW Std Deviation (28.0-62.0) fl RDW Coeff of Richie (11.0-15.0) % Plt Count (150-400) K/uL MPV (7.40-12.00) fL Neut % (Auto) (48.0-80.0) % Lymph % (Auto) (16.0-40.0) % [place] % (Auto) (0.0-15.0) % Eos % (Auto) (0.0-7.0) % Baso % (Auto) (0.0-1.5) % Neut # (Auto) (1.4-5.7) K/uL Lymph # (Auto) (0.6-2.4) K/uL [place] # (Auto) (0.0-0.8) K/uL Eos # (Auto) (0.0-0.7) K/uL Baso # (Auto) (0.0-0.1) K/uL Nucleated RBC % /100WBC Nucleated RBCs # K/uL INR Sodium (136-148) mmol/L Potassium (3.5-5.1) mmol/L Chloride (98-107) mmol/L Carbon Dioxide (21.0-32.0) mmol/L BUN (7.0-18.0) mg/dL Creatinine (0.8-1.3) mg/dL Est Cr Clr Drug Dosing mL/min Estimated GFR (MDRD) ml/min Glucose (74-106) mg/dL Hemoglobin A1c (4.5-6.2) % Calcium (8.5-10.1) mg/dL Total Bilirubin (0.2-1.0) mg/dL AST (15-37) IU/L ALT (14-63) IU/L Alkaline Phosphatase (46-116) U/L Troponin I (0.000-0.056) ng/mL Total Protein (6.4-8.2) g/dL Albumin (3.4-5.0) g/dL Globulin (2.6-4.0) g/dL Albumin/Globulin Ratio (0.9-1.6) Triglycerides (0-200) mg/dL Cholesterol (50-200) mg/dL LDL Cholesterol, Calc (60-180) mg/dL VLDL Cholesterol (5-55) mg/dL HDL Cholesterol (40-60) mg/dL Cholesterol/HDL Ratio (3.3-6.0) Lipase (73-393) U/L TSH 3rd Generation (0.36-3.74) uIU/mL SARS Virus RNA (PCR) NEGATIVE (NEGATIVE) Result Diagrams: 02/06/20 10:38 02/06/20 10:38 EKG INTERPRETATION EKG Date: 02/06/20 Rhythm: A-Fib Sepsis Event Note - Evaluation Sepsis Screening Result: No Definite Risk - Focused Exam Vital Signs: Vital Signs Temp Pulse Resp BP Pulse Ox 02/06/20 14:26 89 17 125/88 98 02/06/20 13:30 92 17 131/80 96 02/06/20 12:45 92 17 145/82 H 98 02/06/20 12:15 89 17 134/82 98 02/06/20 11:45 89 17 128/88 96 02/06/20 11:15 92 16 128/80 97 02/06/20 10:42 97.8 F 101 H 16 113/85 98 Date Exam was Performed: 02/06/20 Time Exam was Performed: 16:34 - Problem List (1) Chest pain SNOMED Code(s): 72694109 ICD Code: R07.9 - CHEST PAIN, UNSPECIFIED Status: Acute Current Visit: Yes (2) Atrial fibrillation SNOMED Code(s): 03043838 ICD Code: I48.91 - UNSPECIFIED ATRIAL FIBRILLATION Status: Acute Current Visit: Yes (3) HTN (hypertension) SNOMED Code(s): 90830597 ICD Code: I10 - ESSENTIAL (PRIMARY) HYPERTENSION Status: Acute Current Visit: Yes Qualifiers: Hypertension type: essential hypertension Qualified Code(s): I10 - Essential (primary) hypertension Problem List Initiated/Reviewed/Updated: Yes Orders Last 24hrs: Active Orders 24 hr Category Date Time Status Patient Status [ADT] Routine ADT 02/06/20 14:11 Active EKG 12 Lead [EKG Documentation Completion] [RC] STAT Care 02/06/20 14:02 Active EKG Documentation Completion [RC] STAT Care 02/06/20 10:44 Active Height and Weight [RC] DAILY Care 02/06/20 14:37 Active Intake and Output [RC] QSHIFT Care 02/06/20 14:37 Active Oxygen Therapy [RC] PRN Care 02/06/20 14:37 Active Telemetry Monitoring [Cardiac Monitoring] [RC] Q8H Care 02/06/20 14:33 Active Up With Assistance [RC] ASDIRECTED Care 02/06/20 14:37 Active VTE/DVT Education [RC] PER UNIT ROUTINE Care 02/06/20 14:37 Active Vital Signs [RC] Q4H Care 02/06/20 14:37 Active Heart Healthy Diet [DIET] Diet 02/06/20 Lunch Active Echo Comp wo Cont [US] Urgent Exams 02/07/20 08:30 Ordered TROPONIN I [CHEM] Q6H Lab 02/06/20 18:00 Ordered TROPONIN I [CHEM] Q6H Lab 02/07/20 00:00 Ordered Acetaminophen [Tylenol] Med 02/06/20 14:37 Active 650 mg PO Q4H PRN Ondansetron [Zofran] Med 02/06/20 14:37 Active 4 mg IVPUSH Q4H PRN Sodium Chloride 0.9% [Saline Flush] Med 02/06/20 10:43 Active 10 ml FLUSH ASDIRECTED PRN Sodium Chloride 0.9% [Saline Flush] Med 02/06/20 10:43 Active 2.5 ml FLUSH ASDIRECTED PRN Saline Lock Insert [OM.PC] Stat Oth 02/06/20 10:43 Ordered Resuscitation Status Routine Resus Stat 02/06/20 14:37 Ordered Medication Orders Acetaminophen (Tylenol) 650 mg PO Q4H PRN PRN Reason: Pain (Mild 1-3)/fever Ondansetron HCl (Zofran) 4 mg IVPUSH Q4H PRN PRN Reason: Nausea Sodium Chloride (Saline Flush) 10 ml FLUSH ASDIRECTED PRN PRN Reason: Keep Vein Open Last Admin: 02/06/20 11:48 Dose: 10 ml Documented by: JIM Sodium Chloride (Saline Flush) 2.5 ml FLUSH ASDIRECTED PRN PRN Reason: Keep Vein Open Last Admin: 02/06/20 11:48 Dose: 2.5 ml Documented by: JIM Assessment/Plan Comment:: This 64 year old male admitted with chest pain r/o ACS and new onset atrial fibrillation 1. Chest pain - Monitor on telemetry - Trend troponins - Arrange outpatient stress test - A1c 5.9 - Lipid panel Triglycerides 65, Total 189, LDL 134, HDL 42 2. New onset Atrial fibrillation - Obtain ECHO - TSH WNL - CHADSVACS score 1 - Given Lovenox in the ED - Continue ASA 325 mg daily - Start metoprolol 25 mg BID and monitor - PRN Lopressor for sustained RVR > 120 - Counseled on new diagnoses, goals of rate control and stroke prevention. 3. HTN - New diagnoses, start metoprolol and monitor VTE prophylaxis: SCDs, given Lovenox in ED Dispo: 1-2 days - Mortality Measure Prognosis:: Good
[2020-02-06] MEDS ORDERED: Metoprolol Tartrate 5 MG/5 ML SDV IVPUSH PRN (16:32)
[2020-02-06] MEDS: Metoprolol Tartrate 25 MG Tab PO SCH (16:44)
[2020-02-07] MEDS: Metoprolol Tartrate 25 MG Tab PO SCH (05:10)
[2020-02-07] MEDS ORDERED: Metoprolol Tartrate 25 MG Tab PO ONE (07:56)
[2020-02-07] MEDS ORDERED: Aspirin 325 MG Tab PO SCH (09:00)
[2020-02-07] MEDS ORDERED: Apixaban 5 MG Tab PO SCH (11:00)
--- NOTE | 2020-02-07 11:03 | PCM.DCSUM1 ---
Discharge Summary - Hospital Course Brief History: This 64 year old male with no significant pmh presented to the ED today with complaints of chest pain x 1 month. He reports this pain happens in themorning and as he gets moving he doesn't notice it anymore. It has been happening more often and he wanted to be evaluated and does not have a PCP. He has been monitoring BP at home, HR has been 90-110 and BP 130-140/80-90. He has never been on medication for HTN. He reports he takes only ASA now. He denies radiation of pain, no other associated symptoms. He denies lightheadedness, dizziness, or syncope. He denies palpitations. 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 No fevers, chills, cough, sore throat. He denies abdominal pain or urinary concerns. No neurological deficits. He used to smoke, but quit many years ago, no alcohol use and no recreational drug use. In the ED, no leukocytosis noted. BUN cr normal. Glucose 109, A1c 5.9. TSH 2.84. EKG revealed atrial fibrillation. Telemetery revealed HR elevated to 150s, all symptomatic. CXR negative. Troponin negative. Admitted for chest pain and new onset atrial fibrillaton. Diagnosis: Stroke: No Modified [place] Scale: No Symptoms at All Modified [place] Scale Score: 0 - Discharge Data Discharge Date: 02/07/20 Discharge Disposition: Home, Self-Care 01 Condition: Good - Referral to Home Health Primary Care Physician: PCP None - Discharge Diagnosis/Problem(s) (1) Chest pain SNOMED Code(s): 51901793 ICD Code: R07.9 - CHEST PAIN, UNSPECIFIED Status: Acute Current Visit: Yes (2) Atrial fibrillation SNOMED Code(s): 83769627 ICD Code: I48.91 - UNSPECIFIED ATRIAL FIBRILLATION Status: Acute Current Visit: Yes (3) HTN (hypertension) SNOMED Code(s): 23841886 ICD Code: I10 - ESSENTIAL (PRIMARY) HYPERTENSION Status: Acute Current Visit: Yes Qualifiers: Hypertension type: essential hypertension Qualified Code(s): I10 - Essential (primary) hypertension - Patient Summary/Data Hospital Course: Admitting Diagnoses: Chest pain New onset afib HTN Discharge Diagnoses: Chest pain New onset afib HTN James was admitted for chest pain, found to have new onset afib. He was monitored on telemetry. Troponins remained negative. No acute changes to EKG. ACS ruled out. He was started on Metoprolol 25 mg BID for afib, HR controlled but with activity elevated to 150s. Metorpolol increased to 50 mg BID. HR i mproved to 80s, remains atrial fibrillation. He was chest pain free during stay, reports the pain had been on and off for about 1 month. CHADSVACS 1, after further discussion we will start him on Eliquis 5 mg BID. ECHO pending on discharge. He will have followup with PCP and Dr Sood, cardiology for further evaluation. He is to return to the ED or clinic if concerns should arise. - Patient Instructions Diet: Heart Healthy Diet Activity: No Strenuous Activities Showering/Bathing: May Shower Notify Provider of: Fever, Increased Pain, Swelling and Redness, Drainage, Nausea and/or Vomiting - Discharge Plan *PRESCRIPTION DRUG MONITORING PROGRAM REVIEWED*: Not Applicable *COPY OF PRESCRIPTION DRUG MONITORING REPORT IN PATIENT DERICK: Not Applicable Prescriptions/Med Rec: Apixaban [Eliquis] 5 mg PO BID #60 tablet Metoprolol Tartrate [Lopressor] 50 mg PO Q12H #60 tablet Home Medications: Home Meds Apixaban [Eliquis] 5 mg PO BID #60 tablet 02/07/20 [Rx] Metoprolol Tartrate [Lopressor] 50 mg PO Q12H #60 tablet 02/07/20 [Rx] Oxygen Therapy Mode: Room Air Patient Handouts: Metoprolol tablets, Hypertension, Adult, [id number], Apixaban oral tablets, Atrial Fibrillation, [id number], Angina, [id number] Referrals: Isabela Sood MD [Physician] - 03/19/20 3:45 pm (new onset a fib, bring all medications with you and any vitamins or suppliments, arrive 15 minutes early) Winston Donahue MD [Physician] - 02/15/20 1:30 pm (Please arrive 30-60 minutes early with any medications you take in their original bottles. Bring your identification, insurance cards and your own facemask to your appointment.) - Discharge Summary/Plan Comment DC Time >30 min.: No - Patient Data Vitals - Most Recent: Last Vital Signs Temp 97.5 F 02/07/20 07:53 Pulse 89 02/07/20 09:17 Resp 16 02/07/20 07:53 BP 148/95 H 02/07/20 09:17 Pulse Ox 95 02/07/20 07:53 Weight - Most Recent: 96.6 kg I&O - Last 24 hours: Intake & Output 02/06/20 02/07/20 02/07/20 22:59 06:59 14:59 Intake Total 400 Output Total 700 Balance -300 Lab Results - Last 24 hrs: Laboratory Results - last 24 hr 02/06/20 02/06/20 02/06/20 Range/Units 10:38 10:38 10:38 Sodium 140 (136-148) mmol/L Potassium 4.5 (3.5-5.1) mmol/L Chloride 106 (98-107) mmol/L Carbon Dioxide 24.2 (21.0-32.0) mmol/L BUN 14 (7.0-18.0) mg/dL Creatinine 1.1 (0.8-1.3) mg/dL Est Cr Clr Drug Dosing 66.06 mL/min Estimated GFR (MDRD) > 60.0 ml/min Glucose 109 H (74-106) mg/dL Hemoglobin A1c 5.9 (4.5-6.2) % Calcium 9.2 (8.5-10.1) mg/dL Total Bilirubin 0.9 (0.2-1.0) mg/dL AST 27 (15-37) IU/L ALT 27 (14-63) IU/L Alkaline Phosphatase 66 (46-116) U/L Troponin I < 0.050 (0.000-0.056) ng/mL Total Protein 7.8 (6.4-8.2) g/dL Albumin 3.8 (3.4-5.0) g/dL Globulin 4.0 (2.6-4.0) g/dL Albumin/Globulin Ratio 0.9 (0.9-1.6) Triglycerides 65 (0-200) mg/dL Cholesterol 189 (50-200) mg/dL LDL Cholesterol, Calc 134 (60-180) mg/dL VLDL Cholesterol 13 (5-55) mg/dL HDL Cholesterol 42 (40-60) mg/dL Cholesterol/HDL Ratio 4.5 (3.3-6.0) Lipase 80 (73-393) U/L TSH 3rd Generation 2.84 (0.36-3.74) uIU/mL SARS Virus RNA (PCR) (NEGATIVE) 02/06/20 02/06/20 02/06/20 Range/Units 12:46 14:20 18:02 Sodium (136-148) mmol/L Potassium (3.5-5.1) mmol/L Chloride (98-107) mmol/L Carbon Dioxide (21.0-32.0) mmol/L BUN (7.0-18.0) mg/dL Creatinine (0.8-1.3) mg/dL Est Cr Clr Drug Dosing mL/min Estimated GFR (MDRD) ml/min Glucose (74-106) mg/dL Hemoglobin A1c (4.5-6.2) % Calcium (8.5-10.1) mg/dL Total Bilirubin (0.2-1.0) mg/dL AST (15-37) IU/L ALT (14-63) IU/L Alkaline Phosphatase (46-116) U/L Troponin I < 0.050 < 0.050 (0.000-0.056) ng/mL Total Protein (6.4-8.2) g/dL Albumin (3.4-5.0) g/dL Globulin (2.6-4.0) g/dL Albumin/Globulin Ratio (0.9-1.6) Triglycerides (0-200) mg/dL Cholesterol (50-200) mg/dL LDL Cholesterol, Calc (60-180) mg/dL VLDL Cholesterol (5-55) mg/dL HDL Cholesterol (40-60) mg/dL Cholesterol/HDL Ratio (3.3-6.0) Lipase (73-393) U/L TSH 3rd Generation (0.36-3.74) uIU/mL SARS Virus RNA (PCR) NEGATIVE (NEGATIVE) 02/07/20 Range/Units 00:17 Sodium (136-148) mmol/L Potassium (3.5-5.1) mmol/L Chloride (98-107) mmol/L Carbon Dioxide (21.0-32.0) mmol/L BUN (7.0-18.0) mg/dL Creatinine (0.8-1.3) mg/dL Est Cr Clr Drug Dosing mL/min Estimated GFR (MDRD) ml/min Glucose (74-106) mg/dL Hemoglobin A1c (4.5-6.2) % Calcium (8.5-10.1) mg/dL Total Bilirubin (0.2-1.0) mg/dL AST (15-37) IU/L ALT (14-63) IU/L Alkaline Phosphatase (46-116) U/L Troponin I < 0.050 (0.000-0.056) ng/mL Total Protein (6.4-8.2) g/dL Albumin (3.4-5.0) g/dL Globulin (2.6-4.0) g/dL Albumin/Globulin Ratio (0.9-1.6) Triglycerides (0-200) mg/dL Cholesterol (50-200) mg/dL LDL Cholesterol, Calc (60-180) mg/dL VLDL Cholesterol (5-55) mg/dL HDL Cholesterol (40-60) mg/dL Cholesterol/HDL Ratio (3.3-6.0) Lipase (73-393) U/L TSH 3rd Generation (0.36-3.74) uIU/mL SARS Virus RNA (PCR) (NEGATIVE) Med Orders - Current: Current Medications Acetaminophen (Tylenol) 650 mg PO Q4H PRN PRN Reason: Pain (Mild 1-3)/fever Apixaban (Eliquis) 5 mg PO BID [facility] Aspirin (Aspirin) 325 mg PO DAILY [facility] Last Admin: 02/07/20 09:17 Dose: 325 mg Documented by: Metoprolol Tartrate (Lopressor) 5 mg IVPUSH Q4H PRN PRN Reason: HR >120 sustained Metoprolol Tartrate (Lopressor) 50 mg PO Q12H [facility] Ondansetron HCl (Zofran) 4 mg IVPUSH Q4H PRN PRN Reason: Nausea Sodium Chloride (Saline Flush) 10 ml FLUSH ASDIRECTED PRN PRN Reason: Keep Vein Open Last Admin: 02/06/20 11:48 Dose: 10 ml Documented by: Sodium Chloride (Saline Flush) 2.5 ml FLUSH ASDIRECTED PRN PRN Reason: Keep Vein Open Last Admin: 02/06/20 11:48 Dose: 2.5 ml Documented by: Discontinued Medications Aspirin (Aspirin) 324 mg PO ONETIME ONE Stop: 02/06/20 10:44 Last Admin: 02/06/20 11:47 Dose: 324 mg Documented by: Enoxaparin Sodium (Lovenox) 100 mg SUBCUT ONETIME ONE Stop: 02/06/20 13:56 Last Admin: 02/06/20 14:21 Dose: 100 mg Documented by: Metoprolol Tartrate (Lopressor) 25 mg PO Q12H [facility] Last Admin: 02/07/20 05:10 Dose: 25 mg Documented by: Metoprolol Tartrate (Lopressor) 25 mg PO ONETIME ONE Stop: 02/07/20 07:57 Last Admin: 02/07/20 09:17 Dose: 25 mg Documented by: - Exam General: Reports: Alert, Oriented, Cooperative, No Acute Distress Lungs: Reports: Clear to Auscultation, Normal Respiratory Effort Cardiovascular: Reports: Regular Rate, Irregular Rhythm. Denies: Murmurs Back Exam: Reports: Normal Inspection, Full Range of Motion Neurological: Reports: No New Focal Deficit Psy/Mental Status: Reports: Alert, Normal Affect, Normal Mood
[2020-02-07] MEDS ORDERED: Metoprolol Tartrate 50 MG Tab PO SCH (17:00)
== END 2020-02-07 13:00 | disposition home or self-care (01) ==
LOC: MW.ED 10:35 → MW.MS 14:11
PROVIDERS: ADMIT Internal Medicine; ATTEND Internal Medicine
DX: I48.91 Unspecified atrial fibrillation (principal); E66.9 Obesity, unspecified; I10 Essential (primary) hypertension; Z20.828 Contact with and (suspected) exposure to other viral communicable diseases; Z88.8 Allergy status to other drugs, medicaments and biological substances; Z79.82 Long term (current) use of aspirin; Z87.891 Personal history of nicotine dependence; Z68.31 Body mass index [BMI] 31.0-31.9, adult
CPT/HCPCS: 36415; 71046; 80053; 80061; 83036; 83690; 84443; 84484; 85025; 85610; 93005; 93306; 99285; A9270; J1650; U0002

== ENCOUNTER 2021-08-21 10:13 | Emergency (ER) | payer MEDICARE, OTHER ==
[2021-08-21] MEDS ORDERED: Ketorolac 30 MG/ML SDV IVPUSH ONE (10:48)
[2021-08-21] MEDS ORDERED: Ondansetron 4 MG/2 ML SDV IVPUSH ONE (10:48)
[2021-08-21] MEDS ORDERED: Sodium Chloride 0.9% 1,000 ML IV SCH (11:00)
[2021-08-21 11:36] LABS: BLOOD UREA NITROGEN,BUN 18 mg/dL (7.0-18.0); CHLORIDE,CL 106 mmol/L (98-107); GLUCOSE RANDOM 123 mg/dL (74-106); LIPASE 72 U/L (73-393); POTASSIUM,K 4.1 mmol/L (3.5-5.1); SODIUM,NA 141 mmol/L (136-148)
[2021-08-21] MEDS ORDERED: Morphine 4 MG/ML VIAL IVPUSH ONE (12:37)
== END 2021-08-21 13:49 | disposition home or self-care (01) ==
LOC: MW.ED 10:13
DX: N13.2 Hydronephrosis with renal and ureteral calculous obstruction (principal); I48.91 Unspecified atrial fibrillation; E66.9 Obesity, unspecified; Z68.31 Body mass index [BMI] 31.0-31.9, adult; Z88.6 Allergy status to analgesic agent; Z79.01 Long term (current) use of anticoagulants
CPT/HCPCS: 36415; 74176; 80053; 81001; 83690; 85025; 96374; 96375; 99284; J1885; J2270; J2405; J7030